=== PATIENT | male | born 1990 | race Caucasian/White ===

== ENCOUNTER 2023-12-08 17:39 | Emergency (ER) | payer SELFPAY ==
[2023-12-08] MEDS ORDERED: levETIRAcetam IV 500 MG/5 ML VIAL ONE (18:12)
[2023-12-08] MEDS ORDERED: SODIUM CHLORIDE 0.9% 1,000 ML BAG ONE (18:20)
[2023-12-08] MEDS ORDERED: ACETAMINOPHEN TAB 500 MG TAB ONE (20:24)
== END 2023-12-08 20:30 ==
LOC: EC 17:39
DX: G40.909 Epilepsy, unspecified, not intractable, without status epilepticus (principal)
CPT/HCPCS: 36415; 80177; 80235; 93005; 96374; 99284